=== PATIENT | male | born 1970 | race Caucasian/White ===

== ENCOUNTER 2018-08-31 19:49 | Emergency (ER) | payer SELFPAY ==
[~2018-08-31] VITALS: Ht 167.6 cm; Wt 47.2 kg
[2018-08-31] MEDS ORDERED: PROPOFOL 100 ML IV ONE (20:14)
[2018-08-31] MEDS ORDERED: PROPOFOL 10,000 MCG/ML (20ML) VIAL IV ONE (20:45)
[2018-08-31] MEDS ORDERED: PROPOFOL 100 ML IV PRN (21:00)
[2018-08-31] MEDS ORDERED: SUCCINYLCHOLINE 200 MG/10 ML VIAL. IV ONE (21:00)
[2018-08-31] MEDS ORDERED: IV RINGERS SOLUTION,LACTATED 1,000 ML IV ONE (21:00)
--- NOTE | 2018-08-31 21:00 | ED.ADGEN ---
Past History Past Medical History: Alcoholism, Anemia, Bipolar, Depression, Hypertension, Other Past Medical History restless leg syndrome Adult General Chief Complaint Chief Complaint -Non-responsive_- HPI HPI Patient is a 48 year old male who presents with hx of ETOH use approximately 1 liter. Pt. has no gag reflex. Does not respond to noxious stimuli. Patient has history of chronic alcohol use. Has not seen a physician approximately 2-1/2 years. Significant other devices E PRT a binge drinker. Patient today developed snoring respirations and a fever. Patient would not respond at home and significant other called for an ambulance. Patient is retired with disability from [employer]. Patient also has application for Medicaid. Patient required intubation to maintain airway. Did not move extremities with noxious stimuli or placement of [place]. Review of Systems Review of Systems Constitutional: History of fever today Review of systems Limited because the patient status Hx. recent complaints of dental pain per significant other. e. Family History Family History Not currently available Current Medications Current Medications Current Medications Medications (Trade) Dose Ordered Sig/Nataly Start Time Stop Time Status Last Admin Dose Admin Ceftriaxone Sodium 1 gm/ Sodium Chloride 50 ml @ 100 mls/hr 1X ONCE 08/31/18 21:30 08/31/18 21:59 DC 08/31/18 21:41 100 MLS/HR Ceftriaxone Sodium (Rocephin) 1 gm STK-MED ONCE 08/31/18 21:33 08/31/18 21:34 DC Diphtheria/ Tetanus/Acell Pertussis (Boostrix) 0.5 ml ONCE ONCE 08/31/18 21:45 08/31/18 21:51 DC 08/31/18 21:44 0.5 ML Ketamine HCl 500 mg 1X ONCE 08/31/18 21:30 08/31/18 21:51 DC 08/31/18 21:35 500 MG Lactated Ringer's 1,000 ml @ 0 mls/hr STAT ONCE 08/31/18 21:00 08/31/18 21:04 DC 08/31/18 20:55 1,000 MLS/HR Magnesium Sulfate 100 ml @ 100 mls/hr 1X ONCE 08/31/18 21:30 08/31/18 22:29 DC 08/31/18 21:42 100 MLS/HR Multivitamins/ Minerals 10 ml/ Folic Acid 1 mg/ Thiamine HCl 100 mg/Lactated Ringer's 1,011.2 ml @ 1,011.2 mls/hr 1X ONCE 08/31/18 21:30 08/31/18 22:29 DC 08/31/18 21:33 1,011.2 MLS/HR Potassium Chloride 100 ml @ 50 mls/hr Q1H 08/31/18 21:45 08/31/18 22:58 DC 08/31/18 21:47 50 MLS/HR Propofol 100 ml @ 0.705 mls/ hr CONT PRN 08/31/18 21:00 08/31/18 22:58 DC 08/31/18 20:55 0.705 MLS/HR Propofol (Diprivan) 200,000 mcg 1X ONCE 08/31/18 20:45 08/31/18 20:46 UNV Sodium Chloride 50 ml @ As Directed STK-MED ONCE 08/31/18 21:33 08/31/18 21:34 DC Succinylcholine Chloride (Anectine) 200 mg 1X ONCE 08/31/18 21:00 08/31/18 21:01 DC 08/31/18 20:53 200 MG Vancomycin HCl (Vancomycin) 1 gm STK-MED ONCE 08/31/18 21:33 08/31/18 21:34 DC Vancomycin HCl 1 gm/Sodium Chloride 250 ml @ 250 mls/hr 1X ONCE 08/31/18 21:30 08/31/18 22:29 DC 08/31/18 21:43 250 MLS/HR Allergies Allergies Allergies Coded Allergies Type Severity Reaction Last Updated Verified No Known Drug Allergies 08/31/18 No Physical Exam Physical Exam Constitutional: in acute distress, -toxic appearance and mal odor. [] HENT: Normocephalic, atraumatic, bilateral external ears normal, oropharynx moist, no oral exudates, nose normal. Very poor dentition. Eyes: PERRLA, EOMI, conjunctiva normal, no discharge. [] Neck: Normal range of motion, no tenderness, supple, no stridor. [] Cardiovascular:Tachycardia Heart rate , PMI to Lt. Lungs & Thorax: Bilateral breath sounds course, rhonchi on Rt upper lung hines on auscultation []Some scattered wheezes. Abdomen: Bowel sounds decreased, , soft, no tenderness, no masses, no pulsatile masses. [] Skin: pale, blisters on skin. Back: blisters Extremities: does not move with noxious stimuli, foot drop, Neurologic: No gag, no movement with noxious stimuli Current Patient Data Vital Signs Vital Signs Date Time Temp Pulse Resp B/P (MAP) Pulse Ox O2 Delivery O2 Flow Rate FiO2 08/31/18 22:13 115 16 126/74 (91) 100 Ventilator 08/31/18 20:00 100.4 Lab Results Laboratory Tests Test 08/31/18 19:55 08/31/18 20:12 08/31/18 21:45 White Blood Count 5.4 x10^3/uL (4.0-11.0) Red Blood Count 2.80 x10^6/uL (4.30-5.70) L Hemoglobin 6.2 g/dL (13.0-17.5) *L Hematocrit 20.5 % (39.0-53.0) L Mean Corpuscular Volume 73 fL (79-100) L Mean Corpuscular Hemoglobin 22 pg (25-35) L Mean Corpuscular Hemoglobin Concent 30 g/dL (31-37) L Red Cell Distribution Width 24.1 % (11.5-14.5) H Platelet Count 94 x10^3/uL (140-400) L Neutrophils (%) (Auto) 45 % (31-73) Lymphocytes (%) (Auto) 44 % (24-48) Monocytes (%) (Auto) 8 % (0-9) Eosinophils (%) (Auto) 1 % (0-3) Basophils (%) (Auto) 2 % (0-3) Neutrophils # (Auto) 2.4 x10^3uL (1.8-7.7) Lymphocytes # (Auto) 2.3 x10^3/uL (1.0-4.8) Monocytes # (Auto) 0.4 x10^3/uL (0.0-1.1) Eosinophils # (Auto) 0.0 x10^3/uL (0.0-0.7) Basophils # (Auto) 0.1 x10^3/uL (0.0-0.2) Segmented Neutrophils % 46 % (35-66) Lymphocytes % 50 % (24-48) H Atypical Lymphocytes % (Manual) 2 % (0-0) H Monocytes % 2 % (0-10) Platelet Estimate Decreased (ADEQUATE) Hypochromasia Mod Anisocytosis Mod Target Cells Occ Urine Collection Type Unknown Urine Color Yellow Urine Clarity Hazy Urine pH 7.5 Urine Specific [place] 1.015 Urine Protein 30 mg/dl (NEG-TRACE) Urine Glucose (UA) Neg mg/dL (NEG) Urine Ketones (Stick) Neg mg/dL (NEG) Urine Blood Neg (NEG) Urine Nitrite Neg (NEG) Urine Bilirubin Neg (NEG) Urine Urobilinogen Dipstick 4 mg/dL (0.2 mg/dL) Urine Leukocyte Esterase Neg (NEG) Urine RBC 0 /HPF (0-2) Urine WBC 0 /HPF (0-4) Urine Squamous Epithelial Cells Occ /LPF Urine Bacteria 0 /HPF (0-FEW) Sodium Level 147 mmol/L (136-145) H Potassium Level 3.1 mmol/L (3.5-5.1) L Chloride Level 110 mmol/L (98-107) H Carbon Dioxide Level 27 mmol/L (21-32) Anion Gap 10 (6-14) Blood Urea Nitrogen 8 mg/dL (8-26) Creatinine 0.9 mg/dL (0.7-1.3) Estimated GFR (Cockcroft-Gault) 89.3 BUN/Creatinine Ratio 9 (6-20) Glucose Level 118 mg/dL (70-99) H Lactic Acid Level 3.3 mmol/L (0.4-2.0) H Calcium Level 7.6 mg/dL (8.5-10.1) L Magnesium Level 1.2 mg/dL (1.8-2.4) L Total Bilirubin 3.0 mg/dL (0.2-1.0) H Aspartate Amino Transferase (AST) 48 U/L (15-37) H Alanine Aminotransferase (ALT) 21 U/L (16-63) Alkaline Phosphatase 74 U/L (46-116) Ammonia 80 mcmol/L (11-34) H Creatine Kinase 115 U/L (39-308) Troponin I Quantitative 0.044 ng/mL (0-0.055) Total Protein 6.1 g/dL (6.4-8.2) L Albumin 2.9 g/dL (3.4-5.0) L Albumin/Globulin Ratio 0.9 (1.0-1.7) L Urine Opiates Screen Neg (NEG) Urine Methadone Screen Neg (NEG) Urine Barbiturates Neg (NEG) Urine Phencyclidine Screen Neg (NEG) Urine Amphetamine/Methamphetamine Neg (NEG) Urine Benzodiazepines Screen Neg (NEG) Urine Cocaine Screen Neg (NEG) Urine Cannabinoids Screen Neg (NEG) Ethyl Alcohol Level 283 mg/dL (0-10) H Urine Ethyl Alcohol Pos (NEG) Blood pH 7.42 (7.35-7.46) 7.49 (7.35-7.46) H Blood Gas PCO2 41 mmHg (35-46) 32 mmHg (35-46) L Blood Gas PO2 256 mmHg (80-100) H 217 mmHg (80-100) H Blood Gas HCO3 26 mmol/L (21-28) 24 mmol/L (21-28) Arterial Bld O2 Saturation (Calc) 100 % (92-99) H 100 % (92-99) H FiO2 100 % 45 % EKG EKG My interpretation EKG shows a sinus tachycardia at 160 bpm. And leftward axis. Strain pattern.[] Radiology/Procedures Radiology/Procedures My interpretation of chest x-ray shows adequate placement ET tube. Adequate place OG. At place central line left subclavian. Borderline cardiomegaly.[] [address] [address] IMAGING REPORT Signed PATIENT: FABRICE FULLER ACCOUNT: [id number] : 1970 LOCATION: ER AGE: 48 SEX: M EXAM STATUS: REG ER ORD. PHYSICIAN: MARY PITTMAN MD REASON: UNRESPONSIVE PROCEDURE: CT HEAD AND CERVICAL SPINE WO CT brain without contrast, CT cervical spine without contrast. HISTORY: Unresponsive CT brain CT scan of brain was done without contrast. There is mild mucosal thickening in the maxillary and ethmoid sinuses. There is decreased density in the left cerebellum which could be artifact or a CVA, there is motion artifact. There is no intracranial hemorrhage. There is an cyst in the left basal ganglia. There is no shift of the midline. Ventricles are normal in size. I do not have an old study for comparison. There is swelling of the orbits and forehead. IMPRESSION: 1. Artifact versus infarct in the cerebellum. 2. Cystic focus left basal ganglia likely old. 3. No intracranial hemorrhage or other acute CVA noted. End impression CT cervical spine Axial CT images were obtained to the cervical spine. Sagittal and coronal reconstructed images were reviewed. There are degenerative changes in the cervical spine. There is an endotracheal tube in good position. Upper lungs are clear. Thyroid is homogeneous. A C-spine fracture is not identified. There is facet arthritis in the cervical spine. There is degenerative disc disease most prominent at C5-6 and C6-7. IMPRESSION: 1. Degenerative changes in the cervical spine. 2. No acute C-spine fracture noted. PQRS Compliance Statement: One or more of the following individualized dose reduction techniques were utilized for this examination: 1. Automated exposure control 2. Adjustment of the mA and/or kV according to patient size 3. Use of iterative reconstruction technique Electronically signed by: Fabrice Jensen MD (08/31/2018 9:43 PM) [facility] DICTATED AND SIGNED BY: FABRICE JENSEN MD DATE: 08/31/182142 CC: MARY PITTMAN MD; PCP,NO ~ Course & Med Decision Making Course & Med Decision Making Pertinent Labs and Imaging studies reviewed. (See chart for details) Procedure Note: Intubation- 7.0 tube via video scope to 23 at teeth. Mallampati 3. CO2 change, increased sats. Adequate placement by CXR Central Line- Triple Lumen Lt. Subclavian- Steri tech. drape glove gown and prep. Selinger tech, Bio patch, suture in place, Steril op site. Adequate Placement via CXR. OG - placed by auscultation. Adequate placement by CXR Critical care 90 min. Not counting procedures. Vent. management. Discussions with significant other (Girl friend). See Critical care sheet for details. Discussed presentation, testing and treatment plan with - will accept pt. at [facility] for further eval. and tx. [] Final Impression Final Impression 1. Respiratory Failure 2. Mental Status Change 3. SIRs / Sepsis 4. Microcytic Hypochromic Anemia = Hgb 6.2- critical 5. Elevated Lymphocytes- 50 /2 atypical 6. Thrombocytopenia 94 7. Hypernatremia 147 8. Hypokalemia 3.1 9. Elevated AST/Jey 48/3.0 10.ETOH Abuse 282 11. Tobacco Use 12. Elevated Ammonia 80 13. Malnutrition Severe= Alb. 2.9 14. Skin = Ulcers/Blisters 15. Foot Drop 16. Hx Restless Leg Syndrome 17. Hx. Depression/ Bipolar 18. Deconditioned [] Dragon Disclaimer Dragon Disclaimer This electronic medical record was generated, in whole or in part, using a voice recognition dictation system. Discharge Summary Visit Information Final Diagnosis Problems Medical Problems: (1) Mental status change resolved Status: Acute (2) Respiratory failure Status: Acute Brief Hospital Course Allergies Allergies Coded Allergies Type Severity Reaction Last Updated Verified No Known Drug Allergies 08/31/18 No Vital Signs Vital Signs Date Time Temp Pulse Resp B/P (MAP) Pulse Ox O2 Delivery O2 Flow Rate FiO2 08/31/18 22:13 115 16 126/74 (91) 100 Ventilator 08/31/18 20:00 100.4 Lab Results Laboratory Tests Test 08/31/18 19:55 08/31/18 20:12 08/31/18 21:45 White Blood Count 5.4 x10^3/uL (4.0-11.0) Red Blood Count 2.80 x10^6/uL (4.30-5.70) Hemoglobin 6.2 g/dL (13.0-17.5) Hematocrit 20.5 % (39.0-53.0) Mean Corpuscular Volume 73 fL (79-100) Mean Corpuscular Hemoglobin 22 pg (25-35) Mean Corpuscular Hemoglobin Concent 30 g/dL (31-37) Red Cell Distribution Width 24.1 % (11.5-14.5) Platelet Count 94 x10^3/uL (140-400) Neutrophils (%) (Auto) 45 % (31-73) Lymphocytes (%) (Auto) 44 % (24-48) Monocytes (%) (Auto) 8 % (0-9) Eosinophils (%) (Auto) 1 % (0-3) Basophils (%) (Auto) 2 % (0-3) Neutrophils # (Auto) 2.4 x10^3uL (1.8-7.7) Lymphocytes # (Auto) 2.3 x10^3/uL (1.0-4.8) Monocytes # (Auto) 0.4 x10^3/uL (0.0-1.1) Eosinophils # (Auto) 0.0 x10^3/uL (0.0-0.7) Basophils # (Auto) 0.1 x10^3/uL (0.0-0.2) Segmented Neutrophils % 46 % (35-66) Lymphocytes % 50 % (24-48) Atypical Lymphocytes % (Manual) 2 % (0-0) Monocytes % 2 % (0-10) Platelet Estimate Decreased (ADEQUATE) Hypochromasia Mod Anisocytosis Mod Target Cells Occ Urine Collection Type Unknown Urine Color Yellow Urine Clarity Hazy Urine pH 7.5 Urine Specific [place] 1.015 Urine Protein 30 mg/dl (NEG-TRACE) Urine Glucose (UA) Neg mg/dL (NEG) Urine Ketones (Stick) Neg mg/dL (NEG) Urine Blood Neg (NEG) Urine Nitrite Neg (NEG) Urine Bilirubin Neg (NEG) Urine Urobilinogen Dipstick 4 mg/dL (0.2 mg/dL) Urine Leukocyte Esterase Neg (NEG) Urine RBC 0 /HPF (0-2) Urine WBC 0 /HPF (0-4) Urine Squamous Epithelial Cells Occ /LPF Urine Bacteria 0 /HPF (0-FEW) Sodium Level 147 mmol/L (136-145) Potassium Level 3.1 mmol/L (3.5-5.1) Chloride Level 110 mmol/L (98-107) Carbon Dioxide Level 27 mmol/L (21-32) Anion Gap 10 (6-14) Blood Urea Nitrogen 8 mg/dL (8-26) Creatinine 0.9 mg/dL (0.7-1.3) Estimated GFR (Cockcroft-Gault) 89.3 BUN/Creatinine Ratio 9 (6-20) Glucose Level 118 mg/dL (70-99) Lactic Acid Level 3.3 mmol/L (0.4-2.0) Calcium Level 7.6 mg/dL (8.5-10.1) Magnesium Level 1.2 mg/dL (1.8-2.4) Total Bilirubin 3.0 mg/dL (0.2-1.0) Aspartate Amino Transf (AST/SGOT) 48 U/L (15-37) Alanine Aminotransferase (ALT/SGPT) 21 U/L (16-63) Alkaline Phosphatase 74 U/L (46-116) Ammonia 80 mcmol/L (11-34) Creatine Kinase 115 U/L (39-308) Troponin I Quantitative 0.044 ng/mL (0-0.055) Total Protein 6.1 g/dL (6.4-8.2) Albumin 2.9 g/dL (3.4-5.0) Albumin/Globulin Ratio 0.9 (1.0-1.7) Urine Opiates Screen Neg (NEG) Urine Methadone Screen Neg (NEG) Urine Barbiturates Neg (NEG) Urine Phencyclidine Screen Neg (NEG) Urine Amphetamine/Methamphetamine Neg (NEG) Urine Benzodiazepines Screen Neg (NEG) Urine Cocaine Screen Neg (NEG) Urine Cannabinoids Screen Neg (NEG) Ethyl Alcohol Level 283 mg/dL (0-10) Urine Ethyl Alcohol Pos (NEG) Blood Gas pH 7.42 (7.35-7.46) 7.49 (7.35-7.46) Blood Gas PCO2 41 mmHg (35-46) 32 mmHg (35-46) Blood Gas PO2 256 mmHg (80-100) 217 mmHg (80-100) Blood Gas HCO3 26 mmol/L (21-28) 24 mmol/L (21-28) Arterial Bld O2 Saturation (Calc) 100 % (92-99) 100 % (92-99) FiO2 100 % 45 % Brief Hospital Course Mr. Fuller is a 48 old male who presented with mental status change and fever. Transfer tp [facility]- Dr. Banks. Discharge Information Condition at Discharge: Improved Dischare Medications Current Medications Propofol 100 ml @ As Directed STK-MED ONCE IV ; Start 08/31/18 at 20:14; Stop 08/31/18 at 20:15; Status DC Propofol (Diprivan) 200,000 mcg 1X ONCE IV ; Start 08/31/18 at 20:45; Stop 08/31/18 at 20:46; Status UNV Succinylcholine Chloride (Anectine) 200 mg 1X ONCE IV Last administered on 08/31/18at 20:53; Admin Dose 200 MG; Start 08/31/18 at 21:00; Stop 08/31/18 at 21:01; Status DC Propofol 100 ml @ 0.705 mls/ hr CONT PRN IV SEE I/O RECORD Last administered on 08/31/18at 20:55; Admin Dose 0.705 MLS/HR; Start 08/31/18 at 21:00; Stop 08/31/18 at 22:58; Status DC Ceftriaxone Sodium 1 gm/ Sodium Chloride 50 ml @ 100 mls/hr 1X ONCE IV Last administered on 08/31/18at 21:41; Admin Dose 100 MLS/HR; Start 08/31/18 at 21:30; Stop 08/31/18 at 21:59; Status DC Vancomycin HCl 1 gm/Sodium Chloride 250 ml @ 250 mls/hr 1X ONCE IV Last administered on 08/31/18at 21:43; Admin Dose 250 MLS/HR; Start 08/31/18 at 21:30; Stop 08/31/18 at 22:29; Status DC Lactated Ringer's 1,000 ml @ 0 mls/hr STAT ONCE IV Last administered on 08/31/18at 20:55; Admin Dose 1,000 MLS/HR; Start 08/31/18 at 21:00; Stop 08/31/18 at 21:04; Status DC Multivitamins/ Minerals 10 ml/ Folic Acid 1 mg/ Thiamine HCl 100 mg/Lactated Ringer's 1,011.2 ml @ 1,011.2 mls/hr 1X ONCE IV Last administered on 08/31/18at 21:33; Admin Dose 1,011.2 MLS/HR; Start 08/31/18 at 21:30; Stop 08/31/18 at 22:29; Status DC Magnesium Sulfate 100 ml @ 100 mls/hr 1X ONCE IV Last administered on 08/31/18at 21:42; Admin Dose 100 MLS/HR; Start 08/31/18 at 21:30; Stop 08/31/18 at 22:29; Status DC Ketamine HCl 500 mg 1X ONCE IV Last administered on 08/31/18at 21:35; Admin Dose 500 MG; Start 08/31/18 at 21:30; Stop 08/31/18 at 21:51; Status DC Potassium Chloride 100 ml @ 50 mls/hr Q1H IV Last administered on 08/31/18at 21:47; Admin Dose 50 MLS/HR; Start 08/31/18 at 21:45; Stop 08/31/18 at 22:58; Status DC Sodium Chloride 250 ml @ As Directed STK-MED ONCE .ROUTE ; Start 08/31/18 at 21:33; Stop 08/31/18 at 21:34; Status DC Sodium Chloride 50 ml @ As Directed STK-MED ONCE .ROUTE ; Start 08/31/18 at 21:33; Stop 08/31/18 at 21:34; Status DC Vancomycin HCl (Vancomycin) 1 gm STK-MED ONCE .ROUTE ; Start 08/31/18 at 21:33; Stop 08/31/18 at 21:34; Status DC Ceftriaxone Sodium (Rocephin) 1 gm STK-MED ONCE .ROUTE ; Start 08/31/18 at 21:33; Stop 08/31/18 at 21:34; Status DC Diphtheria/ Tetanus/Acell Pertussis (Boostrix) 0.5 ml ONCE ONCE VAX IM Last administered on 08/31/18at 21:44; Admin Dose 0.5 ML; Start 08/31/18 at 21:45; Stop 08/31/18 at 21:51; Status DC Jose Disclaimer This chart was dictated in whole or in part using Voice Recognition software in a busy, high-work load, and often noisy Emergency Department environment. It may contain unintended and wholly unrecognized errors or omissions. MARY PITTMAN MD Aug 31, 2018 21:00
[2018-08-31 21:05] LABS: ALBUMIN 2.9 g/dL (3.4-5.0); ALBUMIN/GLOBULIN RATIO 0.9 (1.0-1.7); CALCIUM 7.6 mg/dL (8.5-10.1); CREATININE 0.9 mg/dL (0.7-1.3); GFR 89.3; POTASSIUM 3.1 mmol/L (3.5-5.1); TOTAL PROTEIN 6.1 g/dL (6.4-8.2)
[2018-08-31 21:07] LABS: BASO # 0.1 x10^3/uL (0.0-0.2); BASO % 2 % (0-3); EOS % 1 % (0-3); HEMATOCRIT 20.5 % (39.0-53.0); LYMPH # 2.3 x10^3/uL (1.0-4.8); LYMPH % 44 % (24-48); MEAN CORPUSCULAR HEMOGLOBIN 22 pg (25-35); MEAN CORPUSCULAR HGB CONC 30 g/dL (31-37); MEAN CORPUSCULAR VOLUME 73 fL (79-100); MONO # 0.4 x10^3/uL (0.0-1.1); MONO % 8 % (0-9); NEUT # 2.4 x10^3uL (1.8-7.7); NEUT % 45 % (31-73); PLATELET COUNT 94 x10^3/uL (140-400); RED CELL DISTRIBUTION WIDTH 24.1 % (11.5-14.5); WHITE BLOOD COUNT 5.4 x10^3/uL (4.0-11.0)
[2018-08-31 21:09] LABS: HEMOGLOBIN 6.2 g/dL (13.0-17.5)
[2018-08-31 21:14] LABS: AMPHETAMINE/METHAMPHETAMINE NEG (NEG); BARBITURATES NEG (NEG); BENZODIAZEPINES NEG (NEG); CANNABINOIDS NEG (NEG); COCAINE NEG (NEG); METHADONE NEG (NEG); OPIATES NEG (NEG); PHENCYCLIDINE NEG (NEG)
[2018-08-31 21:17] LABS: BILIRUBIN,URINE NEG (NEG); CLARITY,URINE HAZY; COLOR,URINE YELLOW; GLUCOSE,URINE NEG (NEG); NITRITE,URINE NEG (NEG); RBC,URINE 0 /HPF (0-2); UROBILINOGEN,URINE 4 mg/dL (0.2 mg/dL)
[2018-08-31 21:18] LABS: BACTERIA,URINE 0 /HPF (0-FEW); SQUAMOUS EPITHELIAL CELL,UR OCC /LPF; WBC,URINE 0 /HPF (0-4)
[2018-08-31] MEDS ORDERED: KETAMINE HCL 500 MG/10 ML VIAL. IV ONE (21:30)
[2018-08-31] MEDS ORDERED: MVI, ADULT NO.4 WITH VIT K 10 ML, FOLIC ACID SYRINGE for ER 1 MG, THIAMINE INJ 100 MG i... IV ONE ×4 (21:30)
[2018-08-31] MEDS ORDERED: MAGNESIUM SULFATE 1GM 100 ML IV ONE (21:30)
[2018-08-31] MEDS ORDERED: VANCOMYCIN 1 GM in IV NORMAL SALINE 250ML 250 ML IV ONE (21:30)
[2018-08-31 21:31] LABS: % ATYL 2 % (0-0); % LYMPHS 50 % (24-48); % MONOS 2 % (0-10); % SEGS 46 % (35-66); ANISOCYTOSIS MOD; HYPOCHROMIA MOD; PLT ESTIMATE DECREASED (ADEQUATE); TARGET CELLS OCC
[2018-08-31] MEDS ORDERED: IV NORMAL SALINE 50ML 50 ML ONE (21:33)
[2018-08-31] MEDS ORDERED: IV NORMAL SALINE 250ML 250 ML ONE (21:33)
[2018-08-31] MEDS ORDERED: VANCOMYCIN 1 GM VIAL. ONE (21:33)
[2018-08-31] MEDS ORDERED: cefTRIAXone SODIUM 1 GM VIAL ONE (21:33)
[2018-08-31 21:38] LABS: BGAS PH 7.42 (7.35-7.46)
[2018-08-31] MEDS ORDERED: POTASSIUM CHLORIDE 20MEQ 100 ML IV SCH (21:45)
[2018-08-31] MEDS ORDERED: DIPHTH,PERTUSS(ACELL),TET TOX 0.5 ML DISP.SYRIN. VAX IM ONE (21:45)
--- NOTE | 2018-08-31 21:46 | RAD ---
CT brain without contrast, CT cervical spine without contrast. HISTORY: Unresponsive CT brain CT scan of brain was done without contrast. There is mild mucosal thickening in the maxillary and ethmoid sinuses. There is decreased density in the left cerebellum which could be artifact or a CVA, there is motion artifact. There is no intracranial hemorrhage. There is an cyst in the left basal ganglia. There is no shift of the midline. Ventricles are normal in size. I do not have an old study for comparison. There is swelling of the orbits and forehead. IMPRESSION: 1. Artifact versus infarct in the cerebellum. 2. Cystic focus left basal ganglia likely old. 3. No intracranial hemorrhage or other acute CVA noted. End impression CT cervical spine Axial CT images were obtained to the cervical spine. Sagittal and coronal reconstructed images were reviewed. There are degenerative changes in the cervical spine. There is an endotracheal tube in good position. Upper lungs are clear. Thyroid is homogeneous. A C-spine fracture is not identified. There is facet arthritis in the cervical spine. There is degenerative disc disease most prominent at C5-6 and C6-7. IMPRESSION: 1. Degenerative changes in the cervical spine. 2. No acute C-spine fracture noted. PQRS Compliance Statement: One or more of the following individualized dose reduction techniques were utilized for this examination: 1. Automated exposure control 2. Adjustment of the mA and/or kV according to patient size 3. Use of iterative reconstruction technique Electronically signed by: Fabrice Jensen MD (08/31/2018 9:43 PM) [facility]
[2018-08-31 22:13] VITALS: BP 126/74
[2018-08-31 22:13] LABS: BGAS PH 7.49 (7.35-7.46)
--- NOTE | 2018-08-31 22:34 | RAD ---
CT chest without contrast. HISTORY: Unresponsive CT scan the chest was done without contrast. There is no pneumothorax or pleural effusion. Lungs are free of infiltrates except for mild atelectasis in the lung bases. There is an endotracheal tube in good position stopping just above the aortic arch. Thyroid is homogeneous. There is a left subclavian line extends to the superior vena cava. There is a very large azygos vein which can be seen with an interrupted vena cava or compression of the vena cava. There is a density at the posterior margin of the liver at the vena cava, clinical correlation would be of benefit. There is an NG tube in the stomach. There is no mediastinal adenopathy. IMPRESSION: 1. No acute infiltrates. 2. Very large azygos vein. 3. Endotracheal tube in good position. 4. NG tube extends into the stomach. Electronically signed by: Fabrice Jensen MD (08/31/2018 10:31 PM) [facility]
--- NOTE | 2018-08-31 23:30 | RAD ---
AP chest. HISTORY: Post intubation AP view was taken of the chest. Endotracheal tube is in good position. Left subclavian central line extends to the superior vena cava in good position. There is no pneumothorax. NG tube extends into the stomach. There are no confluent infiltrates. There is no pneumothorax. IMPRESSION: 1. Tubes and lines in good position. 2. No acute infiltrates. 3. No pneumothorax. Electronically signed by: Fabrice Jensen MD (08/31/2018 11:27 PM) [facility]
[2018-09-01] MEDS ORDERED: MAGNESIUM SULFATE 2GM 50 ML IV ONE (08:00)
[2018-09-01] MEDS ORDERED: PANTOPRAZOLE IV 40 MG VIAL. IVP SCH (09:00)
[2018-09-01] MEDS ORDERED: POTASSIUM CHLORIDE 20 MEQ/15 ML ORAL LIQUID. PO SCH (09:00)
[2018-09-01] MEDS ORDERED: LACTULOSE 20 GM/30 ML SOLUTION. PO SCH (09:00)
== END 2018-08-31 22:55 | disposition short-term general hospital (02) ==
LOC: ER 19:49
DX: J96.90 Respiratory failure, unspecified, unspecified whether with hypoxia or hypercapnia (principal); R41.82 Altered mental status, unspecified; D50.9 Iron deficiency anemia, unspecified; D72.820 Lymphocytosis (symptomatic); D69.6 Thrombocytopenia, unspecified; E87.0 Hyperosmolality and hypernatremia; E87.6 Hypokalemia; F10.20 Alcohol dependence, uncomplicated; E46 Unspecified protein-calorie malnutrition; M21.379 Foot drop, unspecified foot; F31.9 Bipolar disorder, unspecified; R82.5 Elevated urine levels of drugs, medicaments and biological substances; I10 Essential (primary) hypertension; Z72.0 Tobacco use; Z68.1 Body mass index [BMI] 19.9 or less, adult; Y90.8 Blood alcohol level of 240 mg/100 ml or more
CPT/HCPCS: 31500; 36415; 36556; 51702; 70450; 71045; 71250; 72125; 80053; 80307; 81001; 82140; 82550; 82803; 83605; 83735; 84484; 85007; 85025; 85045; 87040; 87205; 90471; 90715; 93005; 96365; 96368; 99291; 99292; G0480; J0330; J0696; J2704; J3370; J3475; J3480; J3490; J7050; J7120; 96375

== ENCOUNTER 2019-12-10 20:59 | Emergency (ER) | payer MEDICARE ==
[~2019-12-10] VITALS: Ht 167.6 cm; Wt 65.3 kg
[~2019-12-10 20:59] MED LIST: ETOMIDATE 40 MG/20 ML VIAL. ONE; KETAMINE HCL 500 MG/10 ML VIAL. ONE; ROCURONIUM 50 MG/5 ML VIAL. ONE
[2019-12-10 21:33] LABS: CALCIUM 9.1 mg/dL (8.5-10.1); CREATININE 0.8 mg/dL (0.7-1.3); GFR 101.9
[2019-12-10 21:34] LABS: HEMATOCRIT 29.9 % (39.0-53.0); RED BLOOD COUNT 2.87 x10^6/uL (4.30-5.70)
[2019-12-10 21:37] LABS: POTASSIUM 2.7 mmol/L (3.5-5.1)
--- NOTE | 2019-12-10 22:08 | RAD ---
Exam: Chest one view INDICATION: Tube placement TECHNIQUE: Frontal view of the chest Comparisons: 08/31/2018 FINDINGS: Endotracheal tube with tip approximately 3 cm above the wilver. Enteric tube is seen with tip in the upper mediastinum. The cardiomediastinal silhouette and pulmonary vessels are within normal limits. The lung and pleural spaces are clear. IMPRESSION: Enteric tube with tip at the level of the upper mediastinum. Recommend advancing. Electronically signed by: Harini Jin MD (12/10/2019 10:05 PM) [id number]
[2019-12-10 22:10] VITALS: BP 152/73
[2019-12-10] MEDS ORDERED: KETAMINE HCL IN NACL, ISO-OSM 50 MG/5 ML SYRINGE IV ONE (22:15)
--- NOTE | 2019-12-10 22:15 | PHYS DOC ---
Past History Past Medical History: Alcoholism, Anemia, Bipolar, Depression, Hypertension, Other Past Surgical History: No Surgical History Alcohol Use: Heavy Drug Use: None General Adult EDM: Chief Complaint: ALTERED MENTAL STATUS HPI: HPI: 49-year-old male presents as a code stroke. He arrived by EMS. Patient was last known well 90 minutes prior to arrival. He was taking his medications that his was giving him when he vomited them back up and then passed out. She thought he was just a bit ill so she waited a little over an hour to call EMS. He was not responding to her at all so she became concerned. EMS called and a GCS of 3. The patient was breathing on his own. He had an OPA with no gag refl ex. No reported illness. Patient had a hemorrhagic stroke with a small quarter size bleed 6 months ago. Review of Systems: Review of Systems: Constitutional: Denies fever or chills Eyes: Denies change in visual acuity HENT: Denies nasal congestion or sore throat Respiratory: Denies cough or shortness of breath Cardiovascular: Denies chest pain or edema GI: Denies abdominal pain, nausea, vomiting, bloody stools or diarrhea : Denies dysuria Musculoskeletal: Denies back pain or joint pain Integument: Denies rash Neurologic: Denies headache, focal weakness or sensory changes Endocrine: Denies polyuria or polydipsia Lymphatic: Denies swollen glands Psychiatric: Denies depression or anxiety Heart Score: Risk Factors: Risk Factors: DM, Current or recent (<one month) smoker, HTN, HLP, family history of CAD, obesity. Risk Scores: Score 0 - 3: 2.5% MACE over next 6 weeks - Discharge Home Score 4 - 6: 20.3% MACE over next 6 weeks - Admit for Clinical Observation Score 7 - 10: 72.7% MACE over next 6 weeks - Early Invasive Strategies Current Medications: Current Meds: Current Medications Medications (Trade) Dose Ordered Sig/Nataly Start Time Stop Time Status Last Admin Dose Admin Ketamine HCl (Ketamine) 100 mg 1X ONCE 12/10/19 22:15 12/10/19 22:16 UNV Allergies: Allergies: Allergies Coded Allergies Type Severity Reaction Last Updated Verified No Known Drug Allergies 08/31/18 No Physical Exam: PE: Constitutional: Well developed, well nourished, no acute distress, non-toxic appearance. [] HENT: Normocephalic, atraumatic, bilateral external ears normal, oropharynx moist, no oral exudates, nose normal. [] Eyes: PERRLA, EOMI, conjunctiva normal, no discharge. [] Neck: Normal range of motion, no tenderness, supple, no stridor. [] Cardiovascular:Heart rate regular rhythm, no murmur [] Lungs & Thorax: Bilateral breath sounds clear to auscultation [] Abdomen: Bowel sounds normal, soft, no tenderness, no masses, no pulsatile masses. [] Skin: Warm, dry, no erythema, no rash. [] Back: No tenderness, no CVA tenderness. [] Extremities: No tenderness, no cyanosis, no clubbing, ROM intact, no edema. [] Neurologic: Alert and oriented X 3, normal motor function, normal sensory function, no focal deficits noted. [] Psychologic: Affect normal, judgement normal, mood normal. [] Current Patient Data: Labs: Laboratory Tests Test 12/10/19 21:02 White Blood Count 5.0 x10^3/uL (4.0-11.0) Red Blood Count 2.87 x10^6/uL (4.30-5.70) L Hemoglobin 10.0 g/dL (13.0-17.5) L Hematocrit 29.9 % (39.0-53.0) L Mean Corpuscular Volume 104 fL (79-100) H Mean Corpuscular Hemoglobin 35 pg (25-35) Mean Corpuscular Hemoglobin Concent 34 g/dL (31-37) Red Cell Distribution Width 14.0 % (11.5-14.5) Platelet Count 61 x10^3/uL (140-400) L Prothrombin Time 12.2 SEC (9.4-11.4) H Prothrombin Time INR 1.2 (0.9-1.1) H Activated Partial Thromboplast Time 25 SEC (23-33) Sodium Level 143 mmol/L (136-145) Potassium Level 2.7 mmol/L (3.5-5.1) *L Chloride Level 105 mmol/L (98-107) Carbon Dioxide Level 25 mmol/L (21-32) Anion Gap 13 (6-14) Blood Urea Nitrogen 11 mg/dL (8-26) Creatinine 0.8 mg/dL (0.7-1.3) Estimated GFR (Cockcroft-Gault) 101.9 Glucose Level 158 mg/dL (70-99) H Calcium Level 9.1 mg/dL (8.5-10.1) EKG: EKG: [] Radiology/Procedures: Radiology/Procedures: [] Course & Med Decision Making: Course & Med Decision Making Pertinent Labs and Imaging studies reviewed. (See chart for details) On arrival he did retract to pain and continued to protect his airway and had an O2 sat of 95%. While in CT, the patient spontaneously moved his left arm. At baseline he is reported to not walk. He crawls around his apartment. He also prefers to sleep on the floor. In the ER he had one episode of vomiting for which we gave 8 mg of Zofran. His head CT showed a large 8 cm intraparenchymal bleed on the left side. I elected to intubate him as his airway is likely to be compromised. See note below for details of intubation. The patient's blood pressure stayed in the 130s to mid 140s. Prior to transport was 141/69. I have given the patient 100 mg of ketamine IV for continued sedation in route. I have also given EMS orders for labetalol 20 mg IV if his blood pressure gets above 160. I spoke to the neurologist on-call at and he referred me to the neurosurgeon. Dr. Segura, neurosurgery has accepted the patient for transfer. He will go by emergent ground. EMS was immediately available and likely a total transport time shorter than air. 43 minutes of critical care time was spent on this patient exclusive of other billable procedures. [] Jose Disclaimer: Jose Disclaimer: This electronic medical record was generated, in whole or in part, using a voice recognition dictation system. Intubation Procedure Intub Indication: [] Acute hemorrhagic stroke with concern for unprotected airway. Consent: [] Assumed due to patient's critical condition. His also gave permission when she arrived. Medications Used: [] 20 mg of etomidate, 75 mg of rocuronium. Procedure: The patient was placed in the supine position with his neck slightly extended. Cricoid pressure []. Intubation was performed in 2 attempts with the glide scope. A 7.5 endotracheal tube was used and secured. Initial confirmation of placement included colorimetric end-tidal monitor with change. I also auscultated both lungs and the abdomen. He had equal breath sounds in both lungs and none in the abdomen. A chest x-ray to verify correct placement of the tube. The patient tolerated the procedure well. Complications: None Departure Departure: Impression: Primary Impression: Hemorrhagic stroke Disposition: XF [facility]-TRM HOSP Condition: CRITICAL Referrals: PCP,NO (PCP) Justification of Admission: Justification of Admission: Justification of Admission Dx: N/A EVERETTE SMITH DO Dec 10, 2019 22:15
--- NOTE | 2019-12-10 23:14 | EKG ---
[address] [address] Test Date: 2019-12-10 Test Time: 21:06:56 Pat Name: ODILON FULLER Department: Room: Gender: M [employer]: : 1970 Requested By: EVERETTE SMITH Order Number: [id number] Reading MD: Devin Casey Measurements Intervals Amity Rate: 72 P: 75 NM: 164 QRS: -11 QRSD: 130 T: 47 QT: 448 QTc: 492 Interpretive Statements SINUS RHYTHM LEFTWARD AXIS NON SPECIFIC INTRAVENTRICULAR BLOCK ABNORMAL ECG RI6.02 No previous ECG available for comparison Electronically Signed On 12-11-2019 12:24:28 CDT by Devin Casey
[2019-12-11] MEDS ORDERED: ONDANSETRON PF 4 MG/2 ML VIAL. IVP ONE (05:00)
[2019-12-11] MEDS ORDERED: ROCURONIUM 50 MG/5 ML VIAL. IV ONE (05:00)
[2019-12-11] MEDS ORDERED: ETOMIDATE 40 MG/20 ML VIAL. IV ONE (05:00)
== END 2019-12-10 22:16 | disposition short-term general hospital (02) ==
LOC: ER 20:59
DX: I62.9 Nontraumatic intracranial hemorrhage, unspecified (principal); F10.20 Alcohol dependence, uncomplicated; I10 Essential (primary) hypertension; Z86.2 Personal history of diseases of the blood and blood-forming organs and certain disorders involving the immune mechanism; Y90.9 Presence of alcohol in blood, level not specified
CPT/HCPCS: 31500; 36415; 71045; 80048; 85027; 85610; 85730; 93005; 96374; 96375; 99291; J2405; J3490; 99285-25